=== PATIENT | female | born 1980 | race Hispanic/Latino ===

== ENCOUNTER 2017-08-13 09:32 | Inpatient (IN) | payer MEDICAID ==
[2017-08-13 10:58] LABS: Basophils % (Auto) 0.3 % (0.0-1.8); Eosinophils % (Auto) 0.3 % (0.0-4.3); Hematocrit 39.5 % (30.3-42.9); Hemoglobin 12.8 gm/dl (10.1-14.3); Mean Corpuscular HGB Conc 32 % (30-34); Mean Corpuscular Hemoglobin 31 pg (28-32); Mean Corpuscular Volume 97 fl (79-97); Platelet Count 193 K/mm3 (140-440); Red Blood Count 4.06 M/mm3 (3.65-5.03); Red Cell Distribution Width 12.9 % (13.2-15.2); White Blood Count 15.2 K/mm3 (4.5-11.0)
--- NOTE | 2017-08-13 11:14 | Emergency Department Report ---
ED General Adult HPI - General Chief complaint: Seizure Stated complaint: SEIZURES Time Seen by Provider: 08/13/17 11:10 Source: EMS Mode of arrival: Stretcher Limitations: Altered Mental Status, Physical Limitation - History of Present Illness Initial comments: The patient is transported from the long-term after a generalized seizure. She arrives postictal/altered mental status. 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 Her status is DO NOT RESUSCITATE. The family state that they thought that the patient might of had a fever 2 days ago and asked the staff to take a temperature. However no fever was reported to them per se. On arrival the patient is found to be substantially tachycardic, looks volume depleted and ill and essentially sepsis is presumed. She has had a history of UTIs triggering her seizures in the past per her father. He suspects that this is what is happening again. At the patient's baseline she is nonverbal and bedridden. -: Sudden Severity scale (0 -10): 0 - Related Data Home Medications Medication Instructions Recorded Confirmed Last Taken carBAMazepine [TEGretol] 200 mg PO QID 08/22/14 08/13/17 10/04/15 L.acidoph/B.long/L.plant/B.lac 1 each PO TID 10/04/15 08/13/17 10/04/15 [Probiotic Acidophilus Beads] LORazepam [Ativan] 1 mg IM Q6H PRN 10/04/15 08/13/17 10/04/15 Sertraline [Zoloft] 50 mg PO QDAY 10/04/15 08/13/17 10/04/15 levETIRAcetam [Keppra ORAL LIQ] 1,000 mg PO BID 10/04/15 08/13/17 10/04/15 Famotidine [Pepcid] 20 mg PO QHS 08/13/17 08/13/17 Unknown Loratadine [Claritin] 10 mg PO BID 08/13/17 08/13/17 Unknown Sennosides/Docusate Sodium [Senna 2 each PO QHS 08/13/17 08/13/17 Unknown Laxative Tablet] clonazePAM [Klonopin] 1 mg PO Q8H PRN 08/13/17 08/13/17 Unknown clonazePAM [Klonopin] 1 mg PO QHS 08/13/17 08/13/17 Unknown Allergies Allergy/AdvReac Type Severity Reaction Status Date / Time phenobarbital AdvReac Unknown Unknown Verified 07/02/13 01:01 ED Review of Systems ROS: Stated complaint: SEIZURES Other details as noted in HPI Comment: Unobtainable due to pts medical conditions ED Past Medical Hx - Past Medical History Hx CVA: Yes Hx Congestive Heart Failure: No Hx Diabetes: Yes Hx Deep Vein Thrombosis: No Hx Seizures: Yes Hx Psychiatric Treatment: Yes (ANXIETY Behavior problems Combative) Hx Asthma: No Hx COPD: No Hx HIV: No Additional medical history: ENCEPHALOPATHY - Surgical History Hx Pacemaker: No Hx Internal Defibrillator: No Additional Surgical History: Brainstem AVM surgery, 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 - Social History Smoking Status: Unknown if ever smoked - Medications Home Medications: Home Medications Medication Instructions Recorded Confirmed Last Taken Type carBAMazepine [TEGretol] 200 mg PO QID 08/22/14 08/13/17 10/04/15 History L.acidoph/B.long/L.plant/B.lac 1 each PO TID 10/04/15 08/13/17 10/04/15 History [Probiotic Acidophilus Beads] LORazepam [Ativan] 1 mg IM Q6H PRN 10/04/15 08/13/17 10/04/15 History Sertraline [Zoloft] 50 mg PO QDAY 10/04/15 08/13/17 10/04/15 History levETIRAcetam [Keppra ORAL LIQ] 1,000 mg PO BID 10/04/15 08/13/17 10/04/15 History Famotidine [Pepcid] 20 mg PO QHS 08/13/17 08/13/17 Unknown History Loratadine [Claritin] 10 mg PO BID 08/13/17 08/13/17 Unknown History Sennosides/Docusate Sodium [Senna 2 each PO QHS 08/13/17 08/13/17 Unknown History Laxative Tablet] clonazePAM [Klonopin] 1 mg PO Q8H PRN 08/13/17 08/13/17 Unknown History clonazePAM [Klonopin] 1 mg PO QHS 08/13/17 08/13/17 Unknown History ED Physical Exam - General Limitations: Altered Mental Status, Physical Limitation General appearance: lethargic, other (ill appearing) - Head Head exam: Present: atraumatic - Eye Eye exam: Present: other (disconjugate gaze) Pupils: Present: other (equal and reactive) - ENT ENT exam: Present: mucous membranes dry - Neck Neck exam: Present: other (neck stiffness, the family states this is chronic for the patient). Absent: tenderness - Respiratory Respiratory exam: Present: rhonchi - Cardiovascular Cardiovascular Exam: Present: tachycardia - GI/Abdominal GI/Abdominal exam: Present: soft, normal bowel sounds. Absent: distended, tenderness, guarding, rebound, rigid - Extremities Exam Extremities exam: Present: other (somewhat contracted) - Back Exam Back exam: Present: other (could not yet visualized. Family states no bed sores.) - Neurological Exam Neurological exam: Present: altered, other (post ictal, I believe the patient is at her baseline or near) - Psychiatric Psychiatric exam: Present: flat affect - Skin Skin exam: Present: warm, dry, intact (intact skin as visualized ) ED Course Vital Signs 08/13/17 08/13/17 09:49 11:30 Temperature 98.4 F 100.5 F H Pulse Rate 110 H Respiratory 20 Rate Blood Pressure 94/39 Blood Pressure 94/39 [Left] O2 Sat by Pulse 98 Oximetry - Reevaluation(s) Reevaluation #1: Patient was treated with IV fluids and antibiotics. She is referred to the hospitalist service for further care. Straight catheter urine has been ordered. A chest x-ray does show atelectasis possible infiltrate possible aspiration right lower lobe 08/13/17 13:07 Reevaluation #2: A gram of Keppra was given. The patient has had no further seizure activity. 08/13/17 13:16 ED Medical Decision Making - Lab Data Result diagrams: 08/13/17 10:23 08/13/17 10:23 Laboratory Results - last 24 hr 08/13/17 10:23 WBC 15.2 H RBC 4.06 Hgb 12.8 Hct 39.5 MCV 97 MCH 31 MCHC 32 RDW 12.9 L Plt Count 193 Lymph % (Auto) 6.5 L [place] % (Auto) 8.0 H Eos % (Auto) 0.3 Baso % (Auto) 0.3 Lymph # 1.0 L [place] # 1.2 H Eos # 0.0 Baso # 0.0 Seg Neutrophils % 84.9 H Seg Neutrophils # 12.9 H - Radiology Data Radiology results: report reviewed interpreted by me: There is atelectasis versus infiltrate although I would consider the possibility of aspiration in the right lower lobe. Comparison with previous films indicates that the patient does have a chronically elevated right hemidiaphragm. However the infiltrate is acute. Critical Care Time: Yes Critical care time in (mins) excluding proc time.: 45 Critical care attestation.: If time is entered above; I have spent that time in minutes in the direct care of this critically ill patient, excluding procedure time. ED Disposition Clinical Impression: Seizure Sepsis Qualifiers: Sepsis type: sepsis due to unspecified organism Qualified Code(s): A41.9 - Sepsis, unspecified organism Right lower lobe pneumonia Qualifiers: Pneumonia type: due to unspecified organism Qualified Code(s): J18.1 - Lobar pneumonia, unspecified organism Disposition: OP ADMIT IP TO THIS HOSP Is pt being admited?: Yes Does the pt Need Aspirin: No Condition: Stable Instructions: Bacterial Pneumonia (ED) Referrals: PRIMARY CARE [Primary Care Provider] - 3-5 Days Time of Disposition: 13:16
[2017-08-13] MEDS ORDERED: NACL 0.9% 1000 ML 1,000 ML IV ONE ×2 (11:15→12:58)
[2017-08-13] MEDS ORDERED: KEPPRA 1,000 MG/NS 0.75% 100ML 1,000 MG/100 ML BAG IV ONE (11:16)
[2017-08-13 11:19] LABS: Alanine Aminotransferase 16 units/L (7-56); Albumin 3.9 g/dL (3.9-5); Albumin/Globulin Ratio 1.9 %; Alkaline Phosphatase 68 units/L (35-129); Anion Gap 29 mmol/L; BUN/Creatinine Ratio 27; Bilirubin,Total < 0.20 mg/dL (0.1-1.2); Blood Urea Nitrogen 19 mg/dL (7-17); Calcium 8.5 mg/dL (8.4-10.2); Carbon Dioxide 16 mmol/L (22-30); Chloride 104.5 mmol/L (98-107); Glucose 219 mg/dL (65-100); Potassium 4.2 mmol/L (3.6-5.0); Sodium 145 mmol/L (137-145)
[2017-08-13] MEDS ORDERED: TYLENOL PR ONE ×4 (11:30→20:45)
[2017-08-13] MEDS ORDERED: ZOSYN/NS 3.375GM/50ML 3.375 GM/50 ML BAG IV ONE (11:40)
--- NOTE | 2017-08-13 11:52 | XRay Report ---
Portable chest: Hypertension. There is moderate elevation of the right hemidiaphragm unchanged from prior study of April 2016. There is a hazy increased density just above the right hemidiaphragm not seen on prior exam. The remainder of the right lung as well as the left lung are clear and unremarkable. Normal heart contour and size with no vascular congestion. The visualized left DIRECTOR STARS shunt line is intact. Impression: Hazy right basilar opacity that may represent atelectasis.
[2017-08-13] MEDS ORDERED: VANCOMYCIN PHARMACY TO DOSE IV SCH (12:00)
[2017-08-13 12:55] LABS: INR 1.26 (0.87-1.13)
--- NOTE | 2017-08-13 12:55 | History and Physical Report ---
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 Pt nonverbal and unable to provide history. Pt family at bedside during exam and interview. Pt family states that patient [facility]. EMS notified and patient found to be ill appearing and transported to [facility]. Pt seen and evaluated in ED and found to have Sepsis and Aspiration Pneumonia. Pt is DNR as per family. 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 denies: smoking, alcohol abuse Family history: no significant family history (reviewed) Medications and Allergies Allergies Allergy/AdvReac Type Severity Reaction Status Date / Time phenobarbital AdvReac Unknown Unknown Verified 07/02/13 01:01 Home Medications Medication Instructions Recorded Confirmed Last Taken Type carBAMazepine [TEGretol] 200 mg PO QID 08/22/14 08/13/17 10/04/15 History L.acidoph/B.long/L.plant/B.lac 1 each PO TID 10/04/15 08/13/17 10/04/15 History [Probiotic Acidophilus Beads] LORazepam [Ativan] 1 mg IM Q6H PRN 10/04/15 08/13/17 10/04/15 History Sertraline [Zoloft] 50 mg PO QDAY 10/04/15 08/13/17 10/04/15 History levETIRAcetam [Keppra ORAL LIQ] 1,000 mg PO BID 10/04/15 08/13/17 10/04/15 History Famotidine [Pepcid] 20 mg PO QHS 08/13/17 08/13/17 Unknown History Loratadine [Claritin] 10 mg PO BID 08/13/17 08/13/17 Unknown History Sennosides/Docusate Sodium [Senna 2 each PO QHS 08/13/17 08/13/17 Unknown History Laxative Tablet] clonazePAM [Klonopin] 1 mg PO Q8H PRN 08/13/17 08/13/17 Unknown History clonazePAM [Klonopin] 1 mg PO QHS 08/13/17 08/13/17 Unknown History Active Meds: Active Medications Vancomycin HCl (Vancomycin Pharmacy To Dose) 1 each IV PKCONSULT JESS PRN Reason: Protocol Review of Systems ROS unobtainable: due to mental status Exam - Constitutional Vitals: Temp Pulse Resp BP Pulse Ox 100.5 F H 110 H 20 94/39 98 08/13/17 11:30 08/13/17 09:49 08/13/17 09:49 08/13/17 09:49 08/13/17 09:49 General appearance: Present: severe distress, cachectic - EENT Eyes: Present: PERRL ENT: other (dry oral mucosa) - Neck Neck: Present: supple, normal ROM - Respiratory Respiratory effort: normal Respiratory: bilateral: diminished - Cardiovascular Rhythm: other (tachycardia) Heart Sounds: Present: S1 & S2. Absent: rub, click - Extremities Extremities: pulses symmetrical, No edema Peripheral Pulses: abnormal (Capillary refill: 4 seconds) - Abdominal General gastrointestinal: Present: soft, non-distended Female genitourinary: Present: normal - Integumentary Integumentary: Present: clear, dry, clammy, decreased turgor - Musculoskeletal Musculoskeletal: generalized weakness, other (BUE/BLE contracture) - Psychiatric Psychiatric: no intact judgment & insight, no memory intact - Neurologic Neurologic: no gait normal Results - Labs CBC & Chem 7: 08/13/17 10:23 08/13/17 10:23 Labs: Abnormal lab results 08/13/17 08/13/17 08/13/17 Range/Units 10:23 10:23 10:23 WBC 15.2 H (4.5-11.0) K/mm3 RDW 12.9 L (13.2-15.2) % Lymph % (Auto) 6.5 L (13.4-35.0) % [place] % (Auto) 8.0 H (0.0-7.3) % Lymph # 1.0 L (1.2-5.4) K/mm3 [place] # 1.2 H (0.0-0.8) K/mm3 Seg Neutrophils % 84.9 H (40.0-70.0) % Seg Neutrophils # 12.9 H (1.8-7.7) K/mm3 Carbon Dioxide 16 L (22-30) mmol/L BUN 19 H (7-17) mg/dL Glucose 219 H (65-100) mg/dL POC Glucose (70-105) Lactic Acid 10.70 H* (0.7-2.0) mmol/L Total Protein 6.0 L (6.3-8.2) g/dL 08/13/17 Range/Units 12:25 WBC (4.5-11.0) K/mm3 RDW (13.2-15.2) % Lymph % (Auto) (13.4-35.0) % [place] % (Auto) (0.0-7.3) % Lymph # (1.2-5.4) K/mm3 [place] # (0.0-0.8) K/mm3 Seg Neutrophils % (40.0-70.0) % Seg Neutrophils # (1.8-7.7) K/mm3 Carbon Dioxide (22-30) mmol/L BUN (7-17) mg/dL Glucose (65-100) mg/dL POC Glucose 119 H (70-105) Lactic Acid (0.7-2.0) mmol/L Total Protein (6.3-8.2) g/dL Assessment and Plan - Patient Problems (1) Sepsis Current Visit: No Status: Acute Qualifiers: Sepsis type: sepsis due to unspecified organism Qualified Code(s): A41.9 - Sepsis, unspecified organism Plan to address problem: IV abx, IVF, supportive care, blood cultures, serial lactic acid, Discuss with family prior to initiation of IV pressor support if clinically indicated. (2) Aspiration pneumonia Current Visit: Yes Status: Acute Qualifiers: Aspiration pneumonia type: due to gastric secretions Laterality: right Lung location: lower lobe of lung Qualified Code(s): J69.0 - Pneumonitis due to inhalation of food and vomit Plan to address problem: IV abx, aspiration precautions, blood cultures, supplemental oxygen, nebs, pulmonary toilet (3) Metabolic acidosis Current Visit: Yes Status: Acute Plan to address problem: IVF resuscitation, IV abx, treat sepsis, repeat bmp (4) Severe malnutrition Current Visit: Yes Status: Acute Plan to address problem: increased protein intake, supportive care. (5) Encephalopathy Current Visit: Yes Status: Acute Plan to address problem: Toxic: Treat sepsis, IVF, supportive care (6) DVT prophylaxis Current Visit: Yes Status: Acute
[2017-08-13 12:56] LABS: Partial Thromboplastin Time < 20.0 Sec. (24.2-36.6)
[2017-08-13 14:58] LABS: Bacteria,Urine 1+ /HPF (Negative); Bilirubin,Urine NEG (Negative); Blood,Urine SM (Negative); Ketones,Urine NEG (Negative); Leukocyte Esterase,Urine MOD (Negative); Mucus,Urine FEW /HPF; Nitrite,Urine NEG (Negative); Protein,Urine <15 mg/dL mg/dL (Negative); Urobilinogen,Urine < 2.0 mg/dL (<2.0)
[2017-08-13] MEDS ORDERED: MILK OF MAGNESIA PO PRN (15:07)
[2017-08-13] MEDS ORDERED: NACL 0.9% 1000 ML IV ONE (15:07)
[2017-08-13] MEDS ORDERED: ZOFRAN IV PRN (15:07)
[2017-08-13] MEDS ORDERED: TYLENOL PO PRN (15:07)
[2017-08-13] MEDS ORDERED: VANCOMYCIN VIAL IV ONE (15:07)
[2017-08-13] MEDS ORDERED: DULCOLAX PR PRN (15:07)
[2017-08-13] MEDS ORDERED: VANCOMYCIN/NS 1 GM/250 ML 1 GM/250 ML BAG IV ONE (17:00)
[2017-08-13] MEDS: UNASYN/NS 3 GM/100 ML 3 GM/100 ML BAG IV SCH (18:17)
[2017-08-13] MEDS ORDERED: TYLENOL PO ONE (19:21)
[2017-08-13] MEDS ORDERED: TYLENOL PR PRN (19:21)
[2017-08-14] MEDS: UNASYN/NS 3 GM/100 ML 3 GM/100 ML BAG IV SCH (02:34)
[2017-08-14] MEDS: VANCOMYCIN 750 MG in NACL 0.9% 250ML 250 ML IV SCH ×2 (04:42→18:05)
--- NOTE | 2017-08-14 12:28 | Progress Note ---
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, Encephalopathy, Contracture, Debility, Seizure Disorder, Anxiety with Behavior Disturbance , non verbal and DNR, who was brought after a witnessed seizure in [place], admitted for sepsis and PNA Sepsis * Aspiration PNA * UTI * Continue antibiotics, continue IV fluids Severe malnutrition -Encourage by mouth intake, diet of pured food with nectar thickened liquid ordered Metabolic Encephalopathy Was post ictal status post seizure, now she is back to her baseline mentation Status Epilepticus Seizure threshold was most likely reduced by acute infection/sepsis, continue Keppra, neurology consult History Interval history: Has not had any further seizures, as are her baseline mentation. Which is her babbling incoherently, she eats at baseline Hospitalist Physical - Physical exam Narrative exam: General.: Appears chronically ill HEENT: Moist mucous membranes, extraocular muscles intact, no lymphadenopathy Neck: supple Cardiac: S1-S2 heard Lungs: clear to auscultation bilaterally Abdomen: soft , nontender, nondistended, bowel sounds positive Extremities: no edema clubbing or cyanosis Skin: no rash or lesions Neurologic: Babbling incoherently, bedbound, contracted P - Constitutional Vitals: Temp Pulse Resp BP Pulse Ox 98.8 F 82 18 108/58 96 08/14/17 11:10 08/14/17 11:10 08/14/17 11:10 08/14/17 11:10 08/14/17 11:10 General appearance: Present: cachectic Results - Labs CBC & Chem 7: 08/13/17 10:23 08/13/17 10:23 Labs: Laboratory Last Values WBC 15.2 K/mm3 (4.5-11.0) H 08/13/17 10:23 RBC 4.06 M/mm3 (3.65-5.03) 08/13/17 10:23 Hgb 12.8 gm/dl (10.1-14.3) 08/13/17 10:23 Hct 39.5 % (30.3-42.9) 08/13/17 10:23 MCV 97 fl (79-97) 08/13/17 10:23 MCH 31 pg (28-32) 08/13/17 10:23 MCHC 32 % (30-34) 08/13/17 10:23 RDW 12.9 % (13.2-15.2) L 08/13/17 10:23 Plt Count 193 K/mm3 (140-440) 08/13/17 10:23 Lymph % (Auto) 6.5 % (13.4-35.0) L 08/13/17 10:23 [place] % (Auto) 8.0 % (0.0-7.3) H 08/13/17 10:23 Eos % (Auto) 0.3 % (0.0-4.3) 08/13/17 10:23 Baso % (Auto) 0.3 % (0.0-1.8) 08/13/17 10:23 Lymph # 1.0 K/mm3 (1.2-5.4) L 08/13/17 10:23 [place] # 1.2 K/mm3 (0.0-0.8) H 08/13/17 10:23 Eos # 0.0 K/mm3 (0.0-0.4) 08/13/17 10:23 Baso # 0.0 K/mm3 (0.0-0.1) 08/13/17 10:23 Seg Neutrophils % 84.9 % (40.0-70.0) H 08/13/17 10:23 Seg Neutrophils # 12.9 K/mm3 (1.8-7.7) H 08/13/17 10:23 PT 16.4 Sec. (12.2-14.9) H 08/13/17 12:23 INR 1.26 (0.87-1.13) H 08/13/17 12:23 APTT < 20.0 Sec. (24.2-36.6) L 08/13/17 12:23 Sodium 145 mmol/L (137-145) 08/13/17 10:23 Potassium 4.2 mmol/L (3.6-5.0) 08/13/17 10:23 Chloride 104.5 mmol/L (98-107) 08/13/17 10:23 Carbon Dioxide 16 mmol/L (22-30) L 08/13/17 10:23 Anion Gap 29 mmol/L 08/13/17 10:23 BUN 19 mg/dL (7-17) H 08/13/17 10:23 Creatinine 0.7 mg/dL (0.7-1.2) 08/13/17 10:23 Estimated GFR > 60 ml/min 08/13/17 10:23 BUN/Creatinine Ratio 27 % 08/13/17 10:23 Glucose 219 mg/dL (65-100) H 08/13/17 10:23 POC Glucose 119 (70-105) H 08/13/17 12:25 Lactic Acid 1.00 mmol/L (0.7-2.0) 08/13/17 20:27 Calcium 8.5 mg/dL (8.4-10.2) 08/13/17 10:23 Magnesium 2.20 mg/dL (1.7-2.3) 08/13/17 12:19 Total Bilirubin < 0.20 mg/dL (0.1-1.2) 08/13/17 10:23 AST 17 units/L (5-40) 08/13/17 10:23 ALT 16 units/L (7-56) 08/13/17 10:23 Alkaline Phosphatase 68 units/L (35-129) 08/13/17 10:23 Total Protein 6.0 g/dL (6.3-8.2) L 08/13/17 10:23 Albumin 3.9 g/dL (3.9-5) 08/13/17 10:23 Albumin/Globulin Ratio 1.9 % 08/13/17 10:23 Urine Color Yellow (Yellow) 08/13/17 14:40 Urine Turbidity Clear (Clear) 08/13/17 14:40 Urine pH 5.0 (5.0-7.0) 08/13/17 14:40 Ur Specific [place] 1.020 (1.003-1.030) 08/13/17 14:40 Urine Protein <15 mg/dl mg/dL (Negative) 08/13/17 14:40 Urine Glucose (UA) 50 mg/dL (Negative) 08/13/17 14:40 Urine Ketones Neg mg/dL (Negative) 08/13/17 14:40 Urine Blood Sm (Negative) 08/13/17 14:40 Urine Nitrite Neg (Negative) 08/13/17 14:40 Urine Bilirubin Neg (Negative) 08/13/17 14:40 Urine Urobilinogen < 2.0 mg/dL (<2.0) 08/13/17 14:40 Ur Leukocyte Esterase Mod (Negative) 08/13/17 14:40 Urine WBC (Auto) 19.0 /HPF (0.0-6.0) H 08/13/17 14:40 Urine RBC (Auto) 7.0 /HPF (0.0-6.0) 08/13/17 14:40 U Epithel Cells (Auto) 16.0 /HPF (0-13.0) H 08/13/17 14:40 Urine Bacteria (Auto) 1+ /HPF (Negative) 08/13/17 14:40 Urine Mucus Few /HPF 08/13/17 14:40 Blood Type O POSITIVE 08/13/17 16:46 Antibody Screen TNR 08/13/17 16:46 PAWAN Antibody Screen Negative 08/13/17 16:46 - Imaging and Cardiology Chest x-ray: image reviewed (infiltrate noted)
[2017-08-14] MEDS ORDERED: NON-FORMULARY (Clonazepam [Klonopin] 1 MG) PO PRN (12:31)
[2017-08-14] MEDS ORDERED: NACL 0.9% 1000 ML 1,000 ML IV ONE (12:33)
--- NOTE | 2017-08-14 13:34 | Consultation ---
History of Present Illness - Reason for Consult Consult date: 08/14/17 seizure - History of Present Illness patient seen as consult for seizures and sepsis she has prior history of spastic quadriplegia... dies have scant movement only of the right hand talkes in gibberish only and can not make out any speech not sure if she is blind ? 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 denies: smoking, alcohol abuse Family history: no significant family history (reviewed) Medications and Allergies Allergies Allergy/AdvReac Type Severity Reaction Status Date / Time phenobarbital AdvReac Unknown Unknown Verified 07/02/13 01:01 Home Medications Medication Instructions Recorded Confirmed Last Taken Type carBAMazepine [TEGretol] 200 mg PO QID 08/22/14 08/13/17 10/04/15 History L.acidoph/B.long/L.plant/B.lac 1 each PO TID 10/04/15 08/13/17 10/04/15 History [Probiotic Acidophilus Beads] LORazepam [Ativan] 1 mg IM Q6H PRN 10/04/15 08/13/17 10/04/15 History Sertraline [Zoloft] 50 mg PO QDAY 10/04/15 08/13/17 10/04/15 History levETIRAcetam [Keppra ORAL LIQ] 1,000 mg PO BID 10/04/15 08/13/17 10/04/15 History Famotidine [Pepcid] 20 mg PO QHS 08/13/17 08/13/17 Unknown History Loratadine [Claritin] 10 mg PO BID 08/13/17 08/13/17 Unknown History Sennosides/Docusate Sodium [Senna 2 each PO QHS 08/13/17 08/13/17 Unknown History Laxative Tablet] clonazePAM [Klonopin] 1 mg PO Q8H PRN 08/13/17 08/13/17 Unknown History clonazePAM [Klonopin] 1 mg PO QHS 08/13/17 08/13/17 Unknown History Active Meds: Active Medications Acetaminophen (Tylenol) 650 mg PO Q4H PRN PRN Reason: Pain MILD(1-3)/Fever >100.5/BANG[place]A Bisacodyl (Dulcolax) 10 mg [place] QDAY PRN PRN Reason: Constipation unrelieved by MOM Carbamazepine (Tegretol) 200 mg PO QID JESS Clonazepam (Klonopin) 1 mg PO HS JESS Clonazepam (Klonopin) 1 mg PO Q8H PRN PRN Reason: Anxiety Famotidine (Pepcid) 20 mg PO QHS [facility] Levofloxacin/Dextrose (Levaquin 750mg/150ml) 750 mg in 150 mls @ 100 mls/hr IV Q24HR JESS PRN Reason: Protocol Vancomycin HCl 750 mg/ Sodium (Chloride) 257.5 mls @ 166.667 mls/hr IV Q12H [facility] Last Admin: 08/14/17 04:42 Dose: 166.667 mls/hr Sodium Chloride (Nacl 0.9% 1000 Ml) 1,000 mls @ 125 mls/hr IV ONCE ONE Stop: 08/14/17 20:32 Levetiracetam (Keppra) 1,000 mg PO BID JESS Loratadine (Claritin) 10 mg PO BID JESS Magnesium Hydroxide (Milk Of Magnesia) 30 ml PO Q4H PRN PRN Reason: Constipation Ondansetron HCl (Zofran) 4 mg IV Q8H PRN PRN Reason: N/V unrelieved by Reglan Senna/Docusate Sodium (Senokot S) 2 tab PO QHS JESS Sertraline HCl (Zoloft) 50 mg PO QDAY JESS Vancomycin HCl (Vancomycin Pharmacy To Dose) 1 each IV PKCONSULT JESS PRN Reason: Protocol Exam - Constitutional Vitals: Temp Pulse Resp BP Pulse Ox 98.8 F 82 18 108/58 96 08/14/17 11:10 08/14/17 11:10 08/14/17 11:10 08/14/17 11:10 08/14/17 11:10 Results - Labs CBC & Chem 7: 08/13/17 10:23 08/13/17 10:23
[2017-08-14] MEDS: LEVAQUIN 750MG/150ML 750 MG/150 ML BAG IV SCH (14:07)
[2017-08-14] MEDS ORDERED: NON-FORMULARY (Clonazepam [Klonopin] 1 MG) PO SCH (22:00)
[2017-08-14] MEDS: PEPCID PO SCH (22:57)
[2017-08-14] MEDS: SENOKOT S PO SCH (22:57)
[2017-08-14] MEDS: CLARITIN PO SCH (22:57)
[2017-08-14] MEDS: KEPPRA PO SCH (22:58)
[2017-08-15] MEDS: VANCOMYCIN 750 MG in NACL 0.9% 250ML 250 ML IV SCH ×2 (04:53→15:31)
[2017-08-15] MEDS: KEPPRA PO SCH ×2 (09:46→22:56)
[2017-08-15] MEDS: CLARITIN PO SCH ×2 (09:46→22:57)
[2017-08-15] MEDS: ZOLOFT PO SCH (09:47)
[2017-08-15] MEDS: LEVAQUIN 750MG/150ML 750 MG/150 ML BAG IV SCH (09:48)
--- NOTE | 2017-08-15 12:55 | Progress Note ---
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, Encephalopathy, Contracture, Debility, Seizure Disorder, Anxiety with Behavior Disturbance , non verbal and DNR, who was brought after a witnessed seizure in [place], admitted for sepsis and PNA Sepsis * Aspiration PNA * UTI, fup urine cx * Continue antibiotics, continue IV fluids Severe malnutrition -Encourage by mouth intake, diet of pured food with nectar thickened liquid ordered Metabolic Encephalopathy Was post ictal status post seizure, now she is back to her baseline mentation Status Epilepticus Seizure threshold was most likely reduced by acute infection/sepsis, continue AEDs, neurology consult appreciated History Interval history: Has not had any further seizures, she is at her baseline mentation. Which is her babbling incoherently, she has been eating her meals with assistance Hospitalist Physical - Physical exam Narrative exam: General.: Appears chronically ill HEENT: Moist mucous membranes, extraocular muscles intact, no lymphadenopathy Neck: supple Cardiac: S1-S2 heard Lungs: clear to auscultation bilaterally Abdomen: soft , nontender, nondistended, bowel sounds positive Extremities: no edema clubbing or cyanosis contractures in both legs and left UE Skin: no rash or lesions Neurologic: Babbling incoherently, bedbound, contracted, moving left arm and face, does not obey commands P - Constitutional Vitals: Temp Pulse Resp BP Pulse Ox 97.7 F 75 18 94/47 96 08/15/17 12:30 08/15/17 07:12 08/15/17 12:30 08/15/17 12:30 08/15/17 07:12 General appearance: Present: cachectic Results - Labs CBC & Chem 7: 08/13/17 10:23 08/13/17 10:23 Labs: Laboratory Last Values WBC 15.2 K/mm3 (4.5-11.0) H 08/13/17 10:23 RBC 4.06 M/mm3 (3.65-5.03) 08/13/17 10:23 Hgb 12.8 gm/dl (10.1-14.3) 08/13/17 10:23 Hct 39.5 % (30.3-42.9) 08/13/17 10:23 MCV 97 fl (79-97) 08/13/17 10:23 MCH 31 pg (28-32) 08/13/17 10:23 MCHC 32 % (30-34) 08/13/17 10:23 RDW 12.9 % (13.2-15.2) L 08/13/17 10:23 Plt Count 193 K/mm3 (140-440) 08/13/17 10:23 Lymph % (Auto) 6.5 % (13.4-35.0) L 08/13/17 10:23 [place] % (Auto) 8.0 % (0.0-7.3) H 08/13/17 10:23 Eos % (Auto) 0.3 % (0.0-4.3) 08/13/17 10:23 Baso % (Auto) 0.3 % (0.0-1.8) 08/13/17 10:23 Lymph # 1.0 K/mm3 (1.2-5.4) L 08/13/17 10:23 [place] # 1.2 K/mm3 (0.0-0.8) H 08/13/17 10:23 Eos # 0.0 K/mm3 (0.0-0.4) 08/13/17 10:23 Baso # 0.0 K/mm3 (0.0-0.1) 08/13/17 10:23 Seg Neutrophils % 84.9 % (40.0-70.0) H 08/13/17 10:23 Seg Neutrophils # 12.9 K/mm3 (1.8-7.7) H 08/13/17 10:23 PT 16.4 Sec. (12.2-14.9) H 08/13/17 12:23 INR 1.26 (0.87-1.13) H 08/13/17 12:23 APTT < 20.0 Sec. (24.2-36.6) L 08/13/17 12:23 Sodium 145 mmol/L (137-145) 08/13/17 10:23 Potassium 4.2 mmol/L (3.6-5.0) 08/13/17 10:23 Chloride 104.5 mmol/L (98-107) 08/13/17 10:23 Carbon Dioxide 16 mmol/L (22-30) L 08/13/17 10:23 Anion Gap 29 mmol/L 08/13/17 10:23 BUN 19 mg/dL (7-17) H 08/13/17 10:23 Creatinine 0.7 mg/dL (0.7-1.2) 08/13/17 10:23 Estimated GFR > 60 ml/min 08/13/17 10:23 BUN/Creatinine Ratio 27 % 08/13/17 10:23 Glucose 219 mg/dL (65-100) H 08/13/17 10:23 POC Glucose 84 (70-105) 08/14/17 12:01 Lactic Acid 1.00 mmol/L (0.7-2.0) 08/13/17 20:27 Calcium 8.5 mg/dL (8.4-10.2) 08/13/17 10:23 Magnesium 2.20 mg/dL (1.7-2.3) 08/13/17 12:19 Total Bilirubin < 0.20 mg/dL (0.1-1.2) 08/13/17 10:23 AST 17 units/L (5-40) 08/13/17 10:23 ALT 16 units/L (7-56) 08/13/17 10:23 Alkaline Phosphatase 68 units/L (35-129) 08/13/17 10:23 Total Protein 6.0 g/dL (6.3-8.2) L 08/13/17 10:23 Albumin 3.9 g/dL (3.9-5) 08/13/17 10:23 Albumin/Globulin Ratio 1.9 % 08/13/17 10:23 Urine Color Yellow (Yellow) 08/13/17 14:40 Urine Turbidity Clear (Clear) 08/13/17 14:40 Urine pH 5.0 (5.0-7.0) 08/13/17 14:40 Ur Specific [place] 1.020 (1.003-1.030) 08/13/17 14:40 Urine Protein <15 mg/dl mg/dL (Negative) 08/13/17 14:40 Urine Glucose (UA) 50 mg/dL (Negative) 08/13/17 14:40 Urine Ketones Neg mg/dL (Negative) 08/13/17 14:40 Urine Blood Sm (Negative) 08/13/17 14:40 Urine Nitrite Neg (Negative) 08/13/17 14:40 Urine Bilirubin Neg (Negative) 08/13/17 14:40 Urine Urobilinogen < 2.0 mg/dL (<2.0) 08/13/17 14:40 Ur Leukocyte Esterase Mod (Negative) 08/13/17 14:40 Urine WBC (Auto) 19.0 /HPF (0.0-6.0) H 08/13/17 14:40 Urine RBC (Auto) 7.0 /HPF (0.0-6.0) 08/13/17 14:40 U Epithel Cells (Auto) 16.0 /HPF (0-13.0) H 08/13/17 14:40 Urine Bacteria (Auto) 1+ /HPF (Negative) 08/13/17 14:40 Urine Mucus Few /HPF 08/13/17 14:40 Carbamazepine 2.0 ug/mL (4-12) L 08/14/17 16:32 Blood Type O POSITIVE 08/13/17 16:46 Antibody Screen TNR 08/13/17 16:46 PAWAN Antibody Screen Negative 08/13/17 16:46
[2017-08-15] MEDS: PEPCID PO SCH (22:57)
[2017-08-15] MEDS: SENOKOT S PO SCH (22:57)
[2017-08-16] MEDS: VANCOMYCIN 750 MG in NACL 0.9% 250ML 250 ML IV SCH ×3 (05:17→22:29)
[2017-08-16] MEDS: NACL 0.9% 1000 ML 1,000 ML IV SCH (08:42)
[2017-08-16] MEDS: KEPPRA PO SCH ×2 (10:46→22:24)
[2017-08-16] MEDS: ZOLOFT PO SCH (10:47)
[2017-08-16] MEDS: LEVAQUIN 750MG/150ML 750 MG/150 ML BAG IV SCH (10:48)
[2017-08-16] MEDS: CLARITIN PO SCH ×2 (10:55→22:24)
--- NOTE | 2017-08-16 15:01 | Progress Note ---
Assessment and Plan /Sepsis likley from UTI and possible aspiration, cx negative likely obtained after abx coverage CXR showed RLL haziness Continue antibiotics, continue IV fluids /Severe malnutrition -Encourage by mouth intake, diet of pured food with nectar thickened liquid ordered /Metabolic Encephalopathy Was post ictal status post seizure, now she is back to her baseline mentation /Status Epilepticus Seizure threshold was most likely reduced by acute infection/sepsis, continue AEDs, neurology consult appreciated Disposition: back to SNF Brief history: 36 YO Female Long-Term Resident with DM, 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, Encephalopathy, Contracture, Debility, Seizure Disorder, Anxiety with Behavior Disturbance , non verbal and DNR, who was brought after a witnessed seizure in [place], admitted for sepsis and PNA Hospitalist Physical - Physical exam Narrative exam: General.: Appears chronically ill HEENT: Moist mucous membranes, extraocular muscles intact, no lymphadenopathy Neck: supple Cardiac: S1-S2 heard Lungs: clear to auscultation bilaterally Abdomen: soft , nontender, nondistended, bowel sounds positive Extremities: no edema clubbing or cyanosis contractures in both legs and left UE Skin: no rash or lesions Neurologic: Babbling incoherently, bedbound, contracted, moving left arm and face, does not obey commands Subjective Date of service: 08/16/17 Interval history: Non new issue o/n Patient tolerating diet Has not had any further seizures Objective - Constitutional Vitals: Vital Signs - 12hr 08/16/17 08/16/17 08/16/17 03:30 08:10 08:30 Temperature 97.4 F L 97.6 F Pulse Rate 87 85 80 Pulse Rate [ Right Radial] Respiratory 18 20 Rate Blood Pressure 87/48 84/51 Blood Pressure 86/50 [Left] O2 Sat by Pulse 95 94 Oximetry 08/16/17 08/16/17 08:52 11:36 Temperature 97.8 F Pulse Rate 94 H Pulse Rate [ 80 Right Radial] Respiratory 18 Rate Blood Pressure 88/47 Blood Pressure [Left] O2 Sat by Pulse 97 Oximetry - Labs CBC & Chem 7: 08/17/17 07:54 08/17/17 07:54
[2017-08-16] MEDS: SENOKOT S PO SCH (22:23)
[2017-08-16] MEDS: PEPCID PO SCH (22:24)
[2017-08-17] MEDS: NACL 0.9% 1000 ML 1,000 ML IV SCH (01:55)
[2017-08-17] MEDS: VANCOMYCIN 750 MG in NACL 0.9% 250ML 250 ML IV SCH (06:01)
[2017-08-17 08:14] LABS: Hemoglobin 10.8 gm/dl (10.1-14.3); Mean Corpuscular HGB Conc 34 % (30-34); Mean Corpuscular Hemoglobin 33 pg (28-32); Mean Corpuscular Volume 96 fl (79-97); Platelet Count 115 K/mm3 (140-440); Red Blood Count 3.34 M/mm3 (3.65-5.03); Red Cell Distribution Width 12.8 % (13.2-15.2); White Blood Count 3.5 K/mm3 (4.5-11.0)
[2017-08-17 08:32] LABS: BUN/Creatinine Ratio 20; Blood Urea Nitrogen 4 mg/dL (7-17); Calcium 8.2 mg/dL (8.4-10.2); Carbon Dioxide 27 mmol/L (22-30); Chloride 107.4 mmol/L (98-107); Glucose 89 mg/dL (65-100); Potassium 3.4 mmol/L (3.6-5.0); Sodium 142 mmol/L (137-145)
[2017-08-17 08:34] LABS: Anion Gap 11 mmol/L
--- NOTE | 2017-08-17 09:55 | Discharge Summary ---
Providers - Providers Date of Admission: 08/13/17 15:07 Date of discharge: 08/17/17 Attending physician: BRIAN CURIEL 08/14/17 12:30 Consult to Physician [CONS] Routine Consulting Provider: MICHELLE VELAZQUEZ Reason For Exam: seizure Place consult to:: DR. 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 Discharge diagnosis and management: /Sepsis likley from UTI and possible aspiration PNA, cx negative likely obtained after abx coverage CXR showed RLL haziness Placed on antibiotics, and sepsis protocol She will complete abx outpt /Severe malnutrition -Encourage by mouth intake, diet of pured food with nectar thickened liquid ordered /Metabolic Encephalopathy Was post ictal status post seizure, now she is back to her baseline mentation /Status Epilepticus Seizure threshold was most likely reduced by acute infection/sepsis, continue AEDs, neurology was consulted and recommendation appreciated. Disposition: back to SNF Disposition: DC- TO HOME OR SELFCARE Time spent for discharge: 32 minutes Core Measure Documentation - Palliative Care Palliative Care/ Comfort Measures: Not Applicable - Core Measures Any of the following diagnoses?: none Exam - Physical Exam Narrative exam: General.: Appears malnourished HEENT: Moist mucous membranes, extraocular muscles intact, no lymphadenopathy Neck: supple Cardiac: S1-S2 heard Lungs: clear to auscultation bilaterally Abdomen: soft , nontender, nondistended, bowel sounds positive Extremities: no edema clubbing or cyanosis contractures in both legs and left UE Skin: no rash or lesions Neurologic: Babbling incoherently, bedbound, contracted, moving left arm and face, does not obey commands - Constitutional Vitals: Temp Pulse Resp BP Pulse Ox 97.6 F 63 16 96/48 94 08/17/17 07:32 08/17/17 07:32 08/17/17 07:32 08/17/17 07:32 08/17/17 07:32 Plan Activity: up only with assistance Weight Bearing Status: Non-Weight Bearing Diet: per dietitian instruction Wound: keep clean and dry Follow up with: PRIMARY CARE, [Primary Care Provider] - 3-5 Days Prescriptions: Levofloxacin [Levaquin TAB] 750 mg PO DAILY #5 tablet
[2017-08-17] MEDS ORDERED: K-DUR PO SCH (10:00)
[2017-08-17] MEDS: KEPPRA PO SCH (10:50)
[2017-08-17] MEDS: CLARITIN PO SCH (10:50)
[2017-08-17] MEDS: LEVAQUIN 750MG/150ML 750 MG/150 ML BAG IV SCH (10:50)
[2017-08-17] MEDS: ZOLOFT PO SCH (10:51)
[2017-08-17 11:56] VITALS: BP 105/61
[2017-08-18] MEDS ORDERED: LEVAQUIN PO SCH (10:00)
== END 2017-08-17 13:40 | disposition home or self-care (01) | DRG 871 ==
LOC: ED 09:32 → 3A 15:07
PROVIDERS: ADMIT Internal Medicine; ATTEND Internal Medicine
DX: A41.9 Sepsis, unspecified organism (principal); J69.0 Pneumonitis due to inhalation of food and vomit; E43 Unspecified severe protein-calorie malnutrition; G93.41 Metabolic encephalopathy; N39.0 Urinary tract infection, site not specified; Z68.1 Body mass index [BMI] 19.9 or less, adult; G40.901 Epilepsy, unspecified, not intractable, with status epilepticus; Z88.8 Allergy status to other drugs, medicaments and biological substances; Z86.73 Personal history of transient ischemic attack (TIA), and cerebral infarction without residual deficits; E11.9 Type 2 diabetes mellitus without complications
CPT/HCPCS: 36415; 71010; 80048; 80053; 80156; 80202; 81001; 82140; 82962; 83735; 85025; 85027; 85610; 85730; 86850; 86900; 86901; 87040; 87086; 93005; 93010; 96365; 96366; 96367; 96368; J0295; J1953; J1956; J2543; J3370; J7030; J7050

== ENCOUNTER 2017-11-11 13:24 | Inpatient (IN) | payer MEDICAID ==
[2017-11-11] MEDS ORDERED: KEPPRA 1,000 MG/NS 0.75% 100ML 1,000 MG/100 ML BAG IV ONE ×2 (13:31→13:36)
[2017-11-11] MEDS ORDERED: ZEMURON IV ONE (13:37)
[2017-11-11] MEDS ORDERED: SUBLIMAZE IV ONE (13:37)
[2017-11-11] MEDS ORDERED: KETALAR IV ONE ×2 (13:37→14:00)
[2017-11-11] MEDS ORDERED: ARTIFICIAL TEARS OPHTH OINT OU PRN (13:37)
[2017-11-11] MEDS ORDERED: VASELINE LIP THERAPY TP PRN (13:37)
--- NOTE | 2017-11-11 13:40 | Emergency Department Report ---
ED General Adult HPI - General Chief complaint: Altered Mental Status Stated complaint: SEIZURE Time Seen by Provider: 11/11/17 13:34 Source: family, EMS (verbal report received from EMS.ems notes not available at time of chart dictation), RN notes reviewed, old records reviewed Mode of arrival: Stretcher Limitations: Altered Mental Status, Physical Limitation - History of Present Illness Initial comments: Past medical history: Diabetes, stroke secondary to brainstem arteriovenous malformation, contracture, debilitated, seizure disorder, nonverbal, brought to the hospital by EMS. As per verbal report from EMS, patient has not been breathing, they have been providing bag valve mask ventilation, and an oral airway was inserted. EMS reports multiple seizures. EMS gave multiple doses of IV benzodiazepines in the field. Upon arrival to the ER, the patient was obtunded, not protecting her airway, with paperwork from 2013 indicating that she was DO NOT RESUSCITATE. I called up the patient's mother, Mrs. Nataliia Cramer; [phone] and informed the patient's mother of the patient's dire situation, and asked her what her wishes were. She indicated to me that I should "do everything possible." She also gave verbal permission for intubation, and for central line placement. This conversation is witnessed by nurse Jolene Baires as well as by nurse Rubia Disla\\ Patient continued to receive bag valve mask ventilation from EMS, was placed on a nasal cannula at 15 L/m, and she was induced with 150 mg of ketamine. Radial laryngoscopy was performed with a Monet 3 laryngoscope, and the vocal cords were easily visualized. A 7.5 endotracheal tube was then introduced with difficulty in the larynx. Patient was then paralyzed with 100 mg of rocuronium. Afterwards, patient found to be febrile to 103. She was also found to be tachycardic with a heart rate of 185 bpm that looked very regular. Blood pressure also in the 70s. Given heart rate of 180, hypotension, concern for supraventricular arrhythmia existed. Patient received cardioversion at 100 J, then 150 J, then at 200 J, and she remained in the same rhythm. However she was also given aggressive IV fluids and acetaminophen, and after these therapies, heart rate came down to 160 bpm. Patient loaded with 1 g of Keppra, order placed for 4.5 L of normal saline, and sterile central line was placed by myself using ultrasound guidance in the left internal jugular vein with one attempt and no obvious complications; patient tolerated the procedure well. Currently waiting for laboratory studies and CT scan. Broad-spectrum antibiotics ordered as well. -: Gradual Consistency: constant Improves with: none Worsens with: none Associated Symptoms: confusion, fever/chills, weakness - Related Data Home Medications Medication Instructions Recorded Confirmed Last Taken carBAMazepine [TEGretol] 200 mg PO QID 08/22/14 11/11/17 10/04/15 L.acidoph/B.long/L.plant/B.lac 1 each PO Q8H 10/04/15 11/11/17 10/04/15 [Probiotic Acidophilus Beads] Sertraline [Zoloft] 50 mg PO QDAY 10/04/15 11/11/17 10/04/15 levETIRAcetam [Keppra ORAL LIQ] 1,000 mg PO Q12H 10/04/15 11/11/17 10/04/15 Famotidine [Pepcid] 20 mg PO QHS 08/13/17 11/11/17 Unknown Loratadine [Claritin] 10 mg PO BID 08/13/17 11/11/17 Unknown Sennosides/Docusate Sodium [Senna 2 each PO QHS 08/13/17 11/11/17 Unknown Laxative Tablet] clonazePAM [Klonopin] 1 mg PO Q8H PRN 08/13/17 11/11/17 Unknown clonazePAM [Klonopin] 1 mg PO QHS 08/13/17 11/11/17 Unknown LORazepam [Ativan INJ] 1 mg IM Q6H PRN 11/11/17 11/11/17 Unknown Allergies Allergy/AdvReac Type Severity Reaction Status Date / Time phenobarbital AdvReac Unknown Unknown Verified 07/02/13 01:01 ED Review of Systems ROS: Stated complaint: SEIZURE Other details as noted in HPI Comment: Unobtainable due to pts medical conditions ED Past Medical Hx - Past Medical History Hx CVA: Yes Hx Congestive Heart Failure: No Hx Diabetes: Yes Hx Deep Vein Thrombosis: No Hx Seizures: Yes Hx Psychiatric Treatment: Yes (ANXIETY Behavior problems Combative) Hx Asthma: No Hx COPD: No Hx HIV: No Additional medical history: ENCEPHALOPATHY - Surgical History Hx Pacemaker: No Hx Internal Defibrillator: No Additional Surgical History: Brainstem AVM surgery, POCKET GRINDER OPERATOR shunt - Social History Smoking Status: Never Smoker - Medications Home Medications: Home Medications Medication Instructions Recorded Confirmed Last Taken Type carBAMazepine [TEGretol] 200 mg PO QID 08/22/14 11/11/17 10/04/15 History L.acidoph/B.long/L.plant/B.lac 1 each PO Q8H 10/04/15 11/11/17 10/04/15 History [Probiotic Acidophilus Beads] Sertraline [Zoloft] 50 mg PO QDAY 10/04/15 11/11/17 10/04/15 History levETIRAcetam [Keppra ORAL LIQ] 1,000 mg PO Q12H 10/04/15 11/11/17 10/04/15 History Famotidine [Pepcid] 20 mg PO QHS 08/13/17 11/11/17 Unknown History Loratadine [Claritin] 10 mg PO BID 08/13/17 11/11/17 Unknown History Sennosides/Docusate Sodium [Senna 2 each PO QHS 08/13/17 11/11/17 Unknown History Laxative Tablet] clonazePAM [Klonopin] 1 mg PO Q8H PRN 08/13/17 11/11/17 Unknown History clonazePAM [Klonopin] 1 mg PO QHS 08/13/17 11/11/17 Unknown History LORazepam [Ativan INJ] 1 mg IM Q6H PRN 11/11/17 11/11/17 Unknown History ED Physical Exam - General Limitations: Altered Mental Status, Physical Limitation General appearance: obtunded - Eye Eye exam: Present: other (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 Right eye has exotropia strabismus) - ENT ENT exam: Present: mucous membranes dry - Neck Neck exam: Present: normal inspection - Respiratory Respiratory exam: Present: respiratory distress, rhonchi - Cardiovascular Cardiovascular Exam: Present: tachycardia - GI/Abdominal GI/Abdominal exam: Present: soft, normal bowel sounds. Absent: distended, tenderness, guarding, rebound, rigid, pulsatile mass - Extremities Exam Extremities exam: Absent: tenderness, calf tenderness - Back Exam Back exam: Absent: tenderness - Neurological Exam Neurological exam: Present: altered, other (patient has a GCS of 3 before intubation) - Psychiatric Psychiatric exam: Present: other (patient is nonverbal) - Skin Skin exam: Present: dry ED Course Vital Signs 11/11/17 11/11/17 11/11/17 13:27 13:42 14:27 Pulse Rate 183 H 188 H 172 H Respiratory Rate Blood Pressure 106/60 61/27 79/24 O2 Sat by Pulse 97 94 94 Oximetry 11/11/17 14:47 Pulse Rate Respiratory 22 Rate Blood Pressure O2 Sat by Pulse Oximetry - Reevaluation(s) Reevaluation #1: 11/11/17 15:03 Differential diagnosis, including not limited to: Status epilepticus, bacteremia , urinary tract infection, pneumonia, Assessment and plan: 37-year-old female with fever, hypotension, tachycardia, reported history of multiple seizures, concerning for sepsis and status epilepticus. Currently intubated, sedated, being treated according to the sepsis pathway, heart rate coming down, norepinephrine infusion is going to begin, CT scan of the brain is pending, x-ray of the chest is pending, case discussed with critical care physician, Dr. Cisneros; he agrees with placement into the intensive care unit and agrees to follow in consultation. Prognosis is guarded. Reevaluation #2: 11/11/17 16:15 Heart rate in the 130s, 140s, blood pressure now in the 80s, awaiting CT scan. X-ray shows large dense right lower lobe pneumonia. Extensive discussion had with family regarding poor prognosis. Family is interested in hospice at some point downstream. Contacted case management to follow-up on this. Reevaluation #3: 11/11/17 16:38 Patient having large bloody diarrhea. In conjunction with elevated lactic acid level, this is most likely secondary to ischemic gut. Flagyl added on for additional antibiotic coverage. CT scans pending. Reevaluation #4: 11/11/17 17:14 Case was presented to the Hospital physician, Dr. Baca; he indicates he will follow-up with gastroenterology. Case also transferred to ER physician, Dr. De La Cruz; he will follow up on CT scans, and address any pertinent findings if necessary. - Central Line Placement Left IJ Consent Obtained: verbal consent, emergent situation Time Out Performed: Yes Patient Placed on Monitor/Pulse Ox: Yes MD Prep: mask, gown, gloves Central Line Prep: Povidone-Iodine 1%, Chlorhexidine scrub, sterile drapes applied Local Anesthesia Used: other anesthetic (patient on fentanyl drip, and induced with ketamine) Ultrasound Used for Placement: Yes Central Line Lumen Inserted: triple Bloods Obtained for Lab: Yes Central Line Position: good blood return, all ports aspirated, flus, sutured in place with 2-0 Dressing Applied: Tegaderm Post Procedure X-Ray: tip of catheter in good p Patient Tolerated Procedure: well Complications: none - EJ/Peripheral Line Neck R Time Out Performed: Yes Indications: multiple IV sites needed Skin Cleansed in Sterile Fashion: Yes Size: 18 Dressing Placed: Tegaderm Patient Tolerated Procedure: well - Intubation Time Out Performed: Yes Sedative: Ketamine Mg Given: 150 Paralytic: Rocuronium Mg Given: 100 Laryngoscope: fiberoptic video scope Size: 3 Assist Device Used: fiberoptic device ET Tube Size: 7.5 Tube Secured Depth (cm): 23 Tube Secured Location: teeth Tube Placement Confirmation: visualized tube passing t, equal breath sounds bilat, no breath sounds over epi, confirmation by capnometr Intubation Complications: difficult intubation, other (patient hypoxic prior to intubation. As per EMS report patient had prolonged episode of hypoxia.) Additional Comments: Patient placed on a nasal cannula aAT 15 L/m. Patient received [id number] ventilation. ED Medical Decision Making - Lab Data Result diagrams: 11/11/17 15:00 11/11/17 15:00 - EKG Data -: EKG Interpreted by Me Rate: tachycardia - EKG Data 11/11/17 15:07 Tachycardia, 185 bpm, borderline rightward axis, nonspecific ST depression, rhythm either sinus tachycardia versus a flutter versus SVT - Radiology Data Radiology results: image reviewed interpreted by me: For the chest, interpreted by myself: Large right lower lobe dense consolidation. Endotracheal tube noted at the level of the rigo. X-ray rotated. Central line placement is noted, no obvious pneumothorax, and distended gastric bubble is noted Critical Care Time: Yes Critical care time in (mins) excluding proc time.: 60 Critical care attestation.: If time is entered above; I have spent that time in minutes in the direct care of this critically ill patient, excluding procedure time. ED Disposition Clinical Impression: Sepsis, Status epilepticus, Respiratory failure Disposition: OP ADMIT IP TO THIS HOSP Is pt being admited?: Yes Condition: Critical Referrals: DICRISTINA,DAYLIN, MD [Primary Care Provider] - 3-5 Days
[2017-11-11] MEDS ORDERED: TYLENOL PR ONE ×2 (13:53→14:07)
[2017-11-11] MEDS ORDERED: fentaNYL DRIP Premix 2,000 MCG/100 ML BAG IV SCH (14:00)
[2017-11-11] MEDS ORDERED: NACL 0.9% 500 ML IV SCH (14:00)
[2017-11-11] MEDS ORDERED: ATIVAN 100 MG in NACL 0.9% 50 ML, VIAFLEX EMPTY CONTAINER 0 ML IV SCH (14:00)
[2017-11-11] MEDS ORDERED: ROCEPHIN/NS 1 GM/50 ML 1 GM/50 ML BAG IV ONE (14:06)
[2017-11-11] MEDS ORDERED: NACL 0.9% 1000 ML 1,000 ML IV ONE ×2 (14:06→14:52)
[2017-11-11] MEDS: NACL 0.9% 1000 ML IV ONE ×2 (14:38→19:52)
[2017-11-11] MEDS ORDERED: NACL 0.9% 1000 ML 2,000 ML IV ONE (14:52)
[2017-11-11 14:59] LABS: Bacteria,Urine 1+ /HPF (Negative); Bilirubin,Urine NEG (Negative); Blood,Urine SM (Negative); Color,Urine Yellow (Yellow); Mucus,Urine FEW /HPF; Nitrite,Urine NEG (Negative); Protein,Urine <15 mg/dL mg/dL (Negative); Urobilinogen,Urine < 2.0 mg/dL (<2.0)
[2017-11-11] MEDS ORDERED: LEVOPHED DRIP 4 MG/NS 250 ML 4 MG/250 ML BAG IV SCH (15:00)
[2017-11-11] MEDS ORDERED: SODIUM BICARBONATE IV ONE ×2 (15:00)
[2017-11-11 15:08] LABS: Amphetamine Screen,Urine PRESUMPTIVE NEGATIVE; Benzodiazepines Screen,Urine PRESUMPTIVE NEGATIVE; Cannabinoid Screen,Urine PRESUMPTIVE NEGATIVE; Cocaine Screen,Urine PRESUMPTIVE NEGATIVE; Methadone Screen,Urine PRESUMPTIVE NEGATIVE; Opiate Screen,Urine PRESUMPTIVE NEGATIVE
[2017-11-11] MEDS ORDERED: VANCOMYCIN VIAL IV ONE (15:09)
[2017-11-11 15:13] LABS: Basophils # (Auto) 0.1 K/mm3 (0.0-0.1); Basophils % (Auto) 1.1 % (0.0-1.8); Eosinophils # (Auto) 0.1 K/mm3 (0.0-0.4); Eosinophils % (Auto) 1.2 % (0.0-4.3); Hematocrit 35.7 % (30.3-42.9); Hemoglobin 11.5 gm/dl (10.1-14.3); Lymphocytes # (Auto) 4.4 K/mm3 (1.2-5.4); Lymphocytes % (Auto) 41.9 % (13.4-35.0); Mean Corpuscular HGB Conc 32 % (30-34); Mean Corpuscular Hemoglobin 32 pg (28-32); Mean Corpuscular Volume 100 fl (79-97); Monocytes # (Auto) 0.5 K/mm3 (0.0-0.8); Monocytes % (Auto) 5.3 % (0.0-7.3); Platelet Count 142 K/mm3 (140-440); Red Blood Count 3.58 M/mm3 (3.65-5.03); Red Cell Distribution Width 12.8 % (13.2-15.2)
[2017-11-11] MEDS ORDERED: cefTRIAXone 1 GM in NACL 0.9% 20 ML IV ONE (15:15)
[2017-11-11 15:40] LABS: Alanine Aminotransferase 20 units/L (7-56); BUN/Creatinine Ratio 13; Blood Urea Nitrogen 15 mg/dL (7-17); Calcium 6.9 mg/dL (8.4-10.2); Hemolysis Index 34
[2017-11-11] MEDS ORDERED: VANCOMYCIN PHARMACY TO DOSE IV SCH (16:00)
[2017-11-11] MEDS ORDERED: FLAGYL 500 MG/100 ML 500 MG/100 ML BAG IV SCH (17:00)
[2017-11-11] MEDS ORDERED: VANCOMYCIN/NS 1 GM/250 ML 1 GM/250 ML BAG IV ONE (17:00)
--- NOTE | 2017-11-11 17:52 | XRay Report ---
FINAL REPORT EXAM: XR CHEST 1V AP HISTORY: post central line placement TECHNIQUE: Single, portable chest x-ray. PRIORS: None. FINDINGS: ET tube tip projects approximately 3.5 cm above the rigo. Left IJ central venous catheter tip projects over left brachiocephalic-SVC junction and may be advanced somewhat. Probable EXPRESSIVE MUSIC THERAPIST shunt catheter projects over left hemithorax. Cardiac and mediastinal silhouette within normal limits. Lungs show some elevation or eventration of right hemidiaphragm, right basilar opacities and possible right pleural effusion. Left lung grossly clear. No apparent pneumothorax. Probable marked gastric distention. IMPRESSION: 1. Tube and line positions as reported. 2. Findings which may represent right lower lobe atelectasis versus consolidation and possible right pleural effusion. Correlate clinically. 3. Gastric distention.
[2017-11-11] MEDS ORDERED: NACL 0.9% 1000 ML 1,000 ML ONE (18:17)
--- NOTE | 2017-11-11 18:19 | Cat Scan Report ---
FINAL REPORT EXAM: CT CHEST WO CON HISTORY: pna resp failure TECHNIQUE: Spiral CT scanning of the chest. No IV contrast administered. Multiplanar reformations. PRIORS: None. FINDINGS: Chest: Examination limited due to lack of IV contrast administration. Lungs show mild-moderate elevation or eventration of right hemidiaphragm. Partially confluent opacities in the right lower lobe, with some air bronchograms. Mild and patchy opacities along the posterior pleural margin of left lower lobe may be atelectatic, postinflammatory or secondary to scarring. No discrete parenchymal mass, pleural effusions or apparent pneumothorax. ET tube noted in distal trachea and left IJ central venous catheter distal left brachiocephalic vein. Remainder of mediastinal structures are grossly unremarkable. No apparent aneurysm or pseudoaneurysm. No significant lymph node enlargement or axillary adenopathy. Bony thorax grossly intact. IMPRESSION: 1. Right lower lobe atelectasis versus consolidation, which may represent nonspecific postinflammatory change or pneumonitis of uncertain etiology or chronicity. Clinical correlation and followup suggested. 2. Tube and line positions as reported.
--- NOTE | 2017-11-11 18:29 | Cat Scan Report ---
FINAL REPORT EXAM: CT ABDOMEN PELVIS WO CON HISTORY: bloody stool TECHNIQUE: Spiral CT scanning of the abdomen and pelvis. No oral or IV contrast administered. Multiplanar reformations. PRIORS: None. FINDINGS: Abdomen: Examination limited due to lack of contrast administration. Lung bases evaluated on CT chest examination of same date. Percutaneous CREMATORIUM OPERATOR shunt catheter extends from upper abdomen into the anterior aspect of left lower quadrant. Marked gastric distention containing mostly gas and some fluid, nonspecific. Gallbladder distended, nonspecific. No radiopaque gallstones. Liver grossly unremarkable. Spleen grossly unremarkable. Pancreas grossly unremarkable. Kidneys grossly unremarkable. Adrenal glands grossly unremarkable. Pelvis: Multiple loops of prominent small bowel and colon containing gas and fluid without discrete transition point. Rectal tube or catheter incidentally noted. Appendix is not confidently identified. No significant free peritoneal fluid or loculated fluid collection. Abdominal aorta non-aneurysmal. Callahan catheter balloon and some gas noted within the urinary bladder. Rounded, sclerotic foci in the T12 and L4 vertebral bodies, nonspecific. IMPRESSION: 1. Nonspecific bowel gas pattern suggesting adynamic ileus, which may be associated with nonspecific postinflammatory change, including diarrhea or enteritis. Correlate clinically. 2. Marked gastric and less pronounced gallbladder distention, nonspecific. No apparent cholelithiasis. 3. Sclerotic foci in T12 and L4 vertebral bodies may represent benign versus malignant etiologies, but are nonspecific. Clinical correlation and followup suggested.
--- NOTE | 2017-11-11 18:51 | Cat Scan Report ---
FINAL REPORT EXAM: CT HEAD/BRAIN WO CON HISTORY: Seizure TECHNIQUE: Noncontrast CT axial images of the brain. PRIORS: 04 October 2015. FINDINGS: Left posterior parieto-occipital POWERHOUSE OPERATOR shunt again extends to right lateral ventricle. Probable extra-axial and densely calcified masses suggesting meningiomas again noted in left temporal and left occipital regions measuring approximately 3 cm each, stable. Small and round hyperdensity in left frontal region measuring approximately 1 cm, also stable. Focal encephalomalacia suggesting old ischemic change or infarct in the right frontal region similar to comparison. Volume loss in the posterior fossa about the same. No other parenchymal mass, mass effect, hemorrhage, midline shift or hydrocephalus. No evidence of acute cortical infarct. No abnormal, extra-axial fluid or air collection. Postsurgical change of right temporal, right occipital and midline occipital craniectomies again evident. Heterogeneous mineralization pattern throughout the osseous calvarium similar to comparison. Remainder of osseous calvarium grossly intact. Marginal mucosal thickening in the ethmoid, right maxillary and left sphenoid sinuses. ET tube incidentally noted. IMPRESSION: 1. No acute intracranial findings or significant interval change. Please see above for further details.
--- NOTE | 2017-11-11 20:08 | Event Note ---
Date: 11/11/17 See Dictated H/p in reports Sepsis Hypotension Seizures
[2017-11-11] MEDS ORDERED: DULCOLAX PR PRN (20:09)
[2017-11-11] MEDS ORDERED: ZOFRAN IV PRN (20:09)
[2017-11-11] MEDS ORDERED: MORPHINE IV PRN (20:09)
[2017-11-11] MEDS ORDERED: TYLENOL PO PRN (20:09)
[2017-11-11] MEDS ORDERED: MILK OF MAGNESIA PO PRN (20:09)
[2017-11-11] MEDS ORDERED: PEPCID IV SCH (22:00)
--- NOTE | 2017-11-11 22:00 | History and Physical Report ---
CHIEF COMPLAINT: Altered sensorium for few hours. 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 Seizures went on for about 1 hour. EMS gave multiple doses of IV benzodiazepines in the field. In the ER, the patient was obtunded and because the mother wanted everything to be done, the patient was intubated in the Emergency Room. Here, the patient was DNR from 2013. Because the mother asked, the patient was intubated by the ER physician, Dr. Christianson in the Emergency Room. The mother gave verbal permission for intubation and central line placement. The patient had ketamine and laryngoscopy was performed and intubated. The patient had a fever of 103 at the time of admission to the ER. The patient was loaded with Keppra and was given Keppra. PAST MEDICAL HISTORY: Significant for seizure disorder, cerebrovascular accident. Also, debility and multiple contractures. The patient is bedbound. PAST SURGICAL HISTORY: Unknown except for a brainstem AVM surgery and a FOREST MANAGEMENT PROFESSOR shunt. SOCIAL HISTORY: Not a smoker. Lives in a nursing facility. FAMILY HISTORY: No significant family history. CURRENT MEDICATIONS: Keppra 1000 mg q. 12 hours, and clonazepam 1 mg q. 8 hours, carbamazepine 200 mg 4 times a day, famotidine 20 mg p.o. daily, Zoloft 50 mg once a day. REVIEW OF SYSTEMS: Could not be done because the patient is obtunded. The patient has fever and multiple seizures. Also, low blood pressure in the Emergency Room. PHYSICAL EXAMINATION: GENERAL: Middle-aged female. VITAL SIGNS: Blood pressure is 87/55, heart rate is 124. The initial blood pressure was 78/42. The first blood pressure was 61/27, sats are 100%. Pulse rate was elevated from 120-180. HEENT: The patient intubated. ET tube in place. Pupils equal and reactive. NECK: Supple, no lymphadenopathy, no thyromegaly. LUNGS: Scattered rhonchi bilaterally. CARDIOVASCULAR: S1, S2 heard. No gallop, no murmur, no rub. Apical impulse in left fifth intercostal space and midclavicular line. ABDOMEN: Soft and benign. No hepatosplenomegaly. No guarding, no rigidity. Hernial orifices are normal. EXTREMITIES: Good pedal pulses. No pedal edema. CENTRAL NERVOUS SYSTEM: The patient unresponsive, intubated. Contractures in both the upper extremities and both lower extremities. SKIN: Normal. LABORATORY DATA: Significant for white count of 10,400, hemoglobin of 11.5, hematocrit of 35.7, platelet count of 142, pH of 7.048, pCO2 of 61, pO2 of 163. Lactic acid of 7.4. Sodium is 144, potassium of 4.2, BUN of 15, creatinine of 1.2, AST is 35, ALT is 20, alkaline phosphatase is 72. Total CK is 282. Total protein is 5.0. Albumin is 3.0. Urine is negative. The drug screen is negative. Chest x-ray shows right lower lobe pneumonia and possible right pleural effusion. Gastric distention. EKG shows sinus tachycardia, heart rate of 160 per minute. No arrhythmias. A CT of the chest shows a right lower lobe consolidation versus atelectasis, nonspecific postinflammatory changes or pneumonitis of uncertain etiology. Head CT was negative. No acute findings. ASSESSMENT AND PLAN: 1. Sepsis secondary to right lower lobe pneumonia. The patient started on IV antibiotics, IV Zosyn and vancomycin. Prognosis is very poor. 2. Hypotension secondary to sepsis. IV fluids. No IV Levophed. The patient is DNR. The patient should not have been intubated in the Emergency Room. 3. Seizures. Continue Keppra. 4. High lactic acidosis secondary to sepsis. Continue IV antibiotics and IV fluids. 5. Cerebrovascular accident. Continue supportive care. 6. Acute respiratory failure with hypoxia and hypercapnia. Continue nebulizer treatments. Antibiotics. 7. Deep vein thrombosis prophylaxis. Only SCDs. 8. Gastrointestinal bleed. There is a questionable blood from the mouth. We will get a GI consult for possible upper endoscopy, but I would not recommend it because of the patient's poor prognosis. The patient's prognosis is poor. DNR was re-signed by the mother and the stepfather. Also, concurrently signed by me and Dr. De La Cruz, the ER physician. PROGNOSIS: Very poor. JOB# [id number] VSM/NTS
[2017-11-11 23:58] VITALS: BP 122/18
--- NOTE | 2017-11-12 00:22 | Event Note ---
Date: 11/11/17 Time of 1290
--- NOTE | 2017-11-12 10:11 | Consultation ---
History of Present Illness Consult date: 11/11/17 Requesting physician: CAMILLA TORRES Reason for consult: other (Severe Sepsis; Acute Hypoxemic Hypercapnic Respiratory Failure; Metabolic Acidosis) History of present illness: LATE ENTRY (Patient seen in ER 11/11/17) PULMONARY/CCM CONSULT NOTE (Full dictation # [id number]) Please see dictated notes for full details Medications and Allergies Allergies Allergy/AdvReac Type Severity Reaction Status Date / Time phenobarbital AdvReac Unknown Unknown Verified 07/02/13 01:01 Home Medications Medication Instructions Recorded Confirmed Last Taken Type carBAMazepine [TEGretol] 200 mg PO QID 08/22/14 11/11/17 10/04/15 History L.acidoph/B.long/L.plant/B.lac 1 each PO Q8H 10/04/15 11/11/17 10/04/15 History [Probiotic Acidophilus Beads] Sertraline [Zoloft] 50 mg PO QDAY 10/04/15 11/11/17 10/04/15 History levETIRAcetam [Keppra ORAL LIQ] 1,000 mg PO Q12H 10/04/15 11/11/17 10/04/15 History Famotidine [Pepcid] 20 mg PO QHS 08/13/17 11/11/17 Unknown History Loratadine [Claritin] 10 mg PO BID 08/13/17 11/11/17 Unknown History Sennosides/Docusate Sodium [Senna 2 each PO QHS 08/13/17 11/11/17 Unknown History Laxative Tablet] clonazePAM [Klonopin] 1 mg PO Q8H PRN 08/13/17 11/11/17 Unknown History clonazePAM [Klonopin] 1 mg PO QHS 08/13/17 11/11/17 Unknown History LORazepam [Ativan INJ] 1 mg IM Q6H PRN 11/11/17 11/11/17 Unknown History Active Meds: Active Medications Acetaminophen (Tylenol) 650 mg PO Q4H PRN PRN Reason: Pain MILD(1-3)/Fever >100.5/BANGURA Bisacodyl (Dulcolax) 10 mg TN QDAY PRN PRN Reason: Constipation unrelieved by MOM Famotidine (Pepcid) 20 mg IV BID JESS Last Admin: 11/12/17 00:30 Dose: Not Given Hydrophilic Ointment (Vaseline Lip Therapy) 1 applic TP Q2HR PRN PRN Reason: Dry Lips Metronidazole (Flagyl 500 Mg/100 Ml) 500 mg in 100 mls @ 200 mls/hr IV ONCE JESS Magnesium Hydroxide (Milk Of Magnesia) 30 ml PO Q4H PRN PRN Reason: Constipation Multi-Ingred Cream/Lotion/Oil/Oint (Artificial Tears Ophth Oint) 1 applic OU Q4HR PRN PRN Reason: Dry Eye(s) Ondansetron HCl (Zofran) 4 mg IV Q8H PRN PRN Reason: N/V unrelieved by Reglan Sodium Chloride (Nacl 0.9% 500 Ml) 1 ml IV DIRECT JESS Vancomycin HCl (Vancomycin Pharmacy To Dose) 1 each IV PKCONSULT JESS PRN Reason: Protocol Physical Examination Vital signs: Vital Signs BP Pulse Ox 106/90 89 11/11/17 13:25 11/11/17 13:25 Results - Laboratory Findings CBC and BMP: 11/11/17 15:00 11/11/17 15:00 ABG POC ABG pH 7.348 (7.35-7.45) L 11/11/17 18:33 POC ABG pCO2 21.5 (35-45) L 11/11/17 18:33 POC ABG pO2 232 (80-105) H 11/11/17 18:33 POC ABG HCO3 11.8 11/11/17 18:33 POC ABG Total CO2 12 11/11/17 18:33 POC ABG O2 Sat 100 11/11/17 18:33 Abnormal lab findings: Abnormal Labs 11/11/17 11/11/17 11/11/17 14:27 15:00 15:00 RBC 3.58 L MCV 100 H RDW 12.8 L Lymph % (Auto) 41.9 H POC ABG pH 7.048 L POC ABG pCO2 61.4 H POC ABG pO2 163 H Chloride 112.5 H Carbon Dioxide 13 L Glucose 309 H Lactic Acid Calcium 6.9 L Total Creatine Kinase 282 H Total Protein 5.0 L Albumin 3.0 L Carbamazepine 11/11/17 11/11/17 11/11/17 15:00 15:00 18:33 RBC MCV RDW Lymph % (Auto) POC ABG pH 7.348 L POC ABG pCO2 21.5 L POC ABG pO2 232 H Chloride Carbon Dioxide Glucose Lactic Acid 7.40 H* Calcium Total Creatine Kinase Total Protein Albumin Carbamazepine 2.0 L 11/11/17 Unknown RBC MCV RDW Lymph % (Auto) POC ABG pH POC ABG pCO2 POC ABG pO2 Chloride Carbon Dioxide Glucose Lactic Acid 9.60 H* Calcium Total Creatine Kinase Total Protein Albumin Carbamazepine
--- NOTE | 2017-11-12 10:24 | Progress Note ---
Subjective Date of service: 11/12/17 Principal diagnosis: Severe Sepsis; Acute Hypoxemic Hypercapnic Respiratory Failure; Metabolic A Interval history: Patient is seen today for: Severe Sepsis; Acute Hypoxemic Hypercapnic Respiratory Failure; Metabolic Acidosis Seen and examined at bedside; 24hour events reviewed; nursing and respiratory care staff consulted; no adverse overnight events reported to me; Objective Vital Signs - 12hr 11/11/17 11/11/17 11/11/17 22:31 22:45 23:01 Pulse Rate 138 H 133 H Respiratory 18 35 H 34 H Rate Blood Pressure 89/71 153/87 169/148 11/11/17 11/11/17 11/11/17 23:15 23:31 23:45 Pulse Rate 32 L Respiratory 30 H 29 H 30 H Rate Blood Pressure 203/155 122/18 CBC and BMP: 11/11/17 15:00 11/11/17 15:00 ABG, PT/INR, D-dimer: ABG POC ABG pH 7.348 (7.35-7.45) L 11/11/17 18:33 POC ABG pCO2 21.5 (35-45) L 11/11/17 18:33 POC ABG pO2 232 (80-105) H 11/11/17 18:33 POC ABG HCO3 11.8 11/11/17 18:33 POC ABG Total CO2 12 11/11/17 18:33 POC ABG O2 Sat 100 11/11/17 18:33 Abnormal lab findings: Abnormal Labs 11/11/17 11/11/17 11/11/17 14:27 15:00 15:00 RBC 3.58 L MCV 100 H RDW 12.8 L Lymph % (Auto) 41.9 H POC ABG pH 7.048 L POC ABG pCO2 61.4 H POC ABG pO2 163 H Chloride 112.5 H Carbon Dioxide 13 L Glucose 309 H Lactic Acid Calcium 6.9 L Total Creatine Kinase 282 H Total Protein 5.0 L Albumin 3.0 L Carbamazepine 11/11/17 11/11/17 11/11/17 15:00 15:00 18:33 RBC MCV RDW Lymph % (Auto) POC ABG pH 7.348 L POC ABG pCO2 21.5 L POC ABG pO2 232 H Chloride Carbon Dioxide Glucose Lactic Acid 7.40 H* Calcium Total Creatine Kinase Total Protein Albumin Carbamazepine 2.0 L 11/11/17 Unknown RBC MCV RDW Lymph % (Auto) POC ABG pH POC ABG pCO2 POC ABG pO2 Chloride Carbon Dioxide Glucose Lactic Acid 9.60 H* Calcium Total Creatine Kinase Total Protein Albumin Carbamazepine
[2017-11-12] MEDS ORDERED: ZEMURON IV ONE (11:25)
[2017-11-12] MEDS ORDERED: KETALAR ONE (11:25)
[2017-11-12] MEDS ORDERED: VANCOMYCIN/NS 1 GM/250 ML 1 GM/250 ML BAG IV SCH (20:00)
--- NOTE | 2017-11-13 00:44 | Discharge Summary ---
SUMMARY The patient was admitted for altered sensorium, recurrent seizures and lower GI bleed. When the patient was admitted, the patient's blood pressure was 70/40 and the patient was unresponsive. The patient was intubated because her mother wanted everything to be done initially. The patient was intubated and being taken care of and after 3-4 hours, again the family decided no heroic measures and signed the DNR paper. Her DNR paper was initially signed in 2013, which was rescinded and re-sent again. The patient had a central line placed. The patient was continued on ventilator with vent management. IV fluids, but the patient continued to deteriorate badly and DNR was signed, no pressors were started. The patient had a bad history as far as survival is concerned. The patient had a massive cerebrovascular accident and she was quadriplegic and debilitated and bedbound. The patient still wanted a DNR and for some reason it was rescinded. See my history and physical. The patient around 11:30 p.m. of 11/11/2017. Cause of is sepsis secondary to right lower lobe pneumonia, hypotension, seizure disorder, high lactic acidosis, cerebrovascular accident, acute respiratory failure, ____, also GI bleed. JOB# [id number] PRASANNA/ALEXANDRE
--- NOTE | 2017-11-13 01:20 | Consultation ---
PULMONARY AND CRITICAL CARE CONSULTATION CONSULTING PHYSICIAN: Dr. Christianson. REASON FOR CONSULTATION: Severe sepsis, acute hypoxemic hypercapnic respiratory failure. CHIEF COMPLAINT AND HISTORY OF PRESENT ILLNESS: The patient is an unfortunate 37-year-old female with past medical history significant for a cerebrovascular accident secondary to a brainstem AV malformation, halfway resident who is chronically ill looking and nonverbal. She was brought to the emergency medical room after she was reportedly not breathing. They had been given her bag mask ventilation with an oral airway inserted. EMS reported multiple seizures. In the ER, the patient was found to have a do not resuscitate; however, upon the ER doctor discussing with her mother, she wanted everything done and she was emergently intubated in the Emergency Room. I happened to be there at that time. Initial ABG showed a pH of 7.08, which some respiratory component, but a significant metabolic component. Instructions were given to hyperventilate the patient in the short-time. She was also found to be febrile. There was no report of any bleeding or blood loss at the personal alf from which she came. She was tachycardic and certainly looked very distress. This is as much of the history of presentation as I had. PAST MEDICAL HISTORY: As mentioned above, cerebrovascular accident, diabetes, seizure disorder, anxiety/bizarre behavior problems and the encephalopathy. PAST SURGICAL HISTORY: She had a brainstem surgery for the AVM repair and had a PRINCIPAL NETWORK ARCHITECT shunt placed. At the time I saw her, Levophed drip was about to be started. MEDICATIONS: In terms of medications she was on. She had received ketamine I believe for sedation. She received Zemuron 100 mg IV x 1 and she received 2 amps of sodium bicarbonate that I had ordered. ALLERGIES: PHENOBARBITAL, nature of this allergy is unknown. DIET: Chronically ill, cachectic looking young lady, acute weight loss, again history is unknown. FAMILY AND SOCIAL HISTORY: Resident of a personal alf. No alcohol, tobacco, or illicit drug use or abuse history. Family history otherwise noncontributory. REVIEW OF SYSTEMS: Unobtainable secondary to patient's medical and mental condition. Since she had been in the Emergency Room, no repeat seizures, no gross hematochezia, no melena. PHYSICAL EXAMINATION: VITAL SIGNS: At initial presentation, the first temperature I believe was 103 degrees Fahrenheit. Pulse was 183, respiratory rate was about 15, blood pressure was 106/90, dips to 61/27, O2 sats 94%, inspired oxygen concentration at that time I believe was 100%. GENERAL: Chronically ill-looking young lady, normocephalic, atraumatic, nonresponsive. She was on the mechanical ventilator at the time. 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 She was anicteric. No gross thyromegaly, no gross jugular venous distention. Endotracheal tube was in place, taped at the lips around 20-23 cm. Grossly, no palpable lymph nodes in the supraclavicular or submandibular lymph node chains. LUNGS: Auscultation of both lung flores, bilateral rhonchi, no wheezing. HEART: Heart sounds 1 and 2 are heard. Regular tachycardia at the time of my examination. No rubs, no murmurs. ABDOMEN: Soft, flat. Bowel sounds positive, nontender. EXTREMITIES: Without overt digital clubbing, cyanosis, or pedal edema. Dorsalis pedis pulses are palpable bilaterally. NEUROLOGIC: She had contractures to her extremities and was nonresponsive. Pupils were equal, round, reactive to light. LABORATORY DATA: From my review are as follows: Admission white cell count 10,400, hemoglobin 11.5, hematocrit 35.7, platelet count 142. Arterial blood gas showed a pH of 7.05, pCO2 of 61, pO2 of 163 on 100% FiO2. Serum sodium was 144, potassium 4.2, chloride 113, bicarbonate 13, BUN was 15, creatinine 1.2, and glucose was 309. Lactic acid level was 7.40. AST, ALT within normal limits. CPK 282. Albumin 3.0. Urinalysis was unremarkable, negative for nitrites and leukocyte esterase. Urine drug screen was negative. Tegretol was below lower limits of normal. Blood cultures have been sent. Tracheal aspirate has been sent, no growth to date. A CT scan of the head was done and it was read as no acute intracranial findings. Rather it showed the chronic findings that were already known to be there. Chest x-ray was done, it shows a right lower lobe possible collapse, although there is not significant atelectasis to that side and what appears to be dilated loop of bowel. There is a left IJ central line tip is in the brachiocephalic vein. The endotracheal tube tip is at the upper level of the clavicular heads. A CT scan of the chest was done and essentially showed right lower lobe atelectasis/consolidation. No obvious endobronchial occlusion cut off. No gross pneumothorax, no gross bony fracture. ASSESSMENT: 1. [id number] encephalopathy. 2. Severe sepsis. 3. Acute hypoxemic hypercapnic respiratory failure, now on mechanical ventilator support. 4. Right lower lobe pneumonia, probably aspiration. 5. Right lower lobe atelectasis, may be secondary to endobronchial occlusion. 6. Seizure disorder with breakthrough seizures. 7. Severe metabolic acidosis with lactic acidosis of 7.4. PLAN: Keep her on full mechanical ventilatory support, in the short-time, we will hyperventilate her. Try and compensate for this metabolic acidosis. Oxygen will be weaned to keep sats greater than or equal to about 90% in the short-term. Aspiration precautions will be maintained. We will keep the PEEP at 5 and see if we can open up the right lower lobe. Depending on what the family desires, a bronchoscopy will be considered down the road. Aggressive volume resuscitation has been instituted right away and the sepsis has been activated. She will be placed on broad spectrum antibiotic therapy. CRP level will also be ordered. Lactic acid level will be trended. The family is coming in to decide how much aggressive care they want us to give. She will be placed on GI and DVT prophylaxis. Flu and pneumonia vaccination will be per protocol. Thank you very much for the consult Dr. Christianson. We will follow along and make further recommendations as picture progresses/becomes clearer. She is critically ill on life-sustaining interventions including mechanical ventilatory support and high risk for further deterioration including . At this time, I spent about 30-35 minutes of critical care time without overlap. JOB# [id number] AMNA/ALEXANDRE
== END 2017-11-11 23:20 | DRG 871 ==
LOC: ED 13:24 → CC1 17:15
PROVIDERS: ADMIT Internal Medicine; ATTEND Internal Medicine
PROC: 5A1935Z Respiratory Ventilation, Less than 24 Consecutive Hours (ICD-10-PCS; principal; 2017-11-11)
PROC: 0BH17EZ Insertion of Endotracheal Airway into Trachea, Via Natural or Artificial Opening (ICD-10-PCS; 2017-11-11)
PROC: 4A033R1 Measurement of Arterial Saturation, Peripheral, Percutaneous Approach (ICD-10-PCS; 2017-11-11)
PROC: 02HV33Z Insertion of Infusion Device into Superior Vena Cava, Percutaneous Approach (ICD-10-PCS; 2017-11-11)
DX: A41.9 Sepsis, unspecified organism (principal); J96.01 Acute respiratory failure with hypoxia; J18.1 Lobar pneumonia, unspecified organism; J96.02 Acute respiratory failure with hypercapnia; I63.9 Cerebral infarction, unspecified; G93.40 Encephalopathy, unspecified; G82.50 Quadriplegia, unspecified; Z66 Do not resuscitate; G40.901 Epilepsy, unspecified, not intractable, with status epilepticus; E11.9 Type 2 diabetes mellitus without complications; K92.2 Gastrointestinal hemorrhage, unspecified; Z74.01 Bed confinement status; Z88.8 Allergy status to other drugs, medicaments and biological substances; R65.20 Severe sepsis without septic shock
CPT/HCPCS: 36415; 36600; 51702; 70450; 71045; 71250; 74176; 80053; 80156; 80307; 81001; 82140; 82550; 82803; 85025; 86850; 86900; 86901; 87040; 87086; 87205; 93005; 93010; 94002; 96361; 96365; 96366; 96367; 96368; J0696; J1953; J2060; J3010; J3370; J7030; J7040